=== PATIENT | female | born 1960 | race Caucasian/White ===

== ENCOUNTER → 2019-06-21 | Outpatient (CLI) | payer OTHER ==
[~2019-06-21] MED LIST: CALCIUM 600 +1 EAC1 PO; CIPROFLOXACIN500 M1 PO; CLIMARA PRO PA1 EACH TOP; HYDROCODONE-AP1 EAC6 PO; HYOSCYAMIN125 MCG/5 PO; MIRALAX255 GM PO; NIACIN 500 MG500 M1 PO; NORCO 5-325 TA1 EACH PO; OMEPRAZOLE 20 M20 MG PO; OXYBUTYNIN 5 MG5 M1 PO; PYRIDIUM200 M1 PO; SENNA PO; SERTRALINE HCL100 MG PO; VITAMIN D1000 UNI1; VITAMIN D31000 UNI2 PO; XANAX 0.5 MG0.5 M1 PO
== END ==
LOC: M.RAD 10:56
DX: Z12.31 Encounter for screening mammogram for malignant neoplasm of breast (principal)